=== PATIENT | female | born 1965 | race Two or more races ===

== ENCOUNTER 2024-06-06 11:09 | Emergency (ER) | payer OTHER ==
[~2024-06-06] VITALS: Ht 157.5 cm; Wt 86.9 kg
[2024-06-06 11:16] VITALS: BP 98/64; PULSE 98; RESP 18; O2SAT 98
[2024-06-06 11:57] LABS: Urine Bacteria None Seen /hpf (None Seen)
[2024-06-06 12:34] LABS: Urine Blood Negative /uL (Negative); Urine Clarity Clear (Clear); Urine Color Yellow (Yellow); Urine Protein, UAD Negative (Negative); Urine Specific Gravity 1.044 (1.001-1.035); Urine Urobilinogen Normal (Negative); Urine WBC <1 /hpf (0 - 5)
== END 2024-06-06 13:54 | disposition home or self-care (01) ==
LOC: ER 11:09
DX: Z76.0 Encounter for issue of repeat prescription (principal); Z88.2 Allergy status to sulfonamides; Z98.890 Other specified postprocedural states
CPT/HCPCS: 81001

== ENCOUNTER 2024-10-03 15:15 | Emergency (ER) | payer OTHER ==
[~2024-10-03] VITALS: Ht 157.5 cm; Wt 94.2 kg
[2024-10-03 15:47] LABS: Basophils # (auto) 0 10 ^3/uL (0-0.2); Basophils % (auto) 0.2 % (0.0-2.0); Eosinophils # (auto) 0 10 ^3/uL (0-0.8); Eosinophils % (auto) 0.5 % (0.0-7.0); Hematocrit 40.9 % (36.0-46.0); Hemoglobin 13.2 g/dL (12.2-16.2); Lymphocytes # (auto) 0.6 10 ^3/uL (0.4-5.4); Lymphocytes % (auto) 12.6 % (10.0-50.0); Mean Corpuscular Hemoglobin 30.1 pg (28.0-32.0); Mean Corpuscular Hgb Conc. 32.4 g/dL (32.0-36.0); Monocytes # (auto) 0.6 10 ^3/uL (0-1.3); Monocytes % (auto) 11.4 % (0.0-12.0); Neutrophils # (auto) 3.6 10 ^3/uL (1.6-8.6); Neutrophils % (auto) 75.3 % (37.0-80.0); Platelet Count (auto) 286 10^3/uL (140-450); Red Cell Distribution Width 16.1 % (11.8-14.3); White Blood Cell 4.8 10^3/uL (4.4-10.8)
[2024-10-03 15:50] LABS: Chloride 102 mmol/L (98-107)
[2024-10-03 15:51] LABS: Anion Gap 6 (5-15); Carbon Dioxide 25 mmol/L (20-31)
[2024-10-03 15:52] LABS: Calcium 8.6 mg/dL (8.7-10.4); Sodium 133 mmol/L (136-145)
[2024-10-03 15:56] LABS: Blood Urea Nitrogen 20 mg/dL (9-23)
[2024-10-03 15:57] LABS: Glucose 303 mg/dL (74-106)
[2024-10-03 16:04] LABS: Urine Bacteria None Seen /hpf (None Seen)
[2024-10-03 16:13] LABS: Urine Blood Negative /uL (Negative); Urine Clarity Clear (Clear); Urine Color Yellow (Yellow); Urine Protein, UAD Negative (Negative); Urine Urobilinogen Normal (Negative); Urine WBC 1 /hpf (0 - 5); Urine pH 5.5 (5.0-9.0)
--- NOTE | 2024-10-03 16:20 | ED.PDOC ---
GI ASSESSMENT HPI Comments 58-year-old female who comes in with chief complaint of lower abdominal pain. The patient states that she has also been having some nausea as well as vomiting and diarrhea. Patient states that the symptoms have been going on for the past days. She states that the pain radiates towards her back and she rates it as a 10/10. The patient has had multiple surgeries for hernias in the past as well as adhesions. Chief Complaint: Abdominal Pain Time Seen by MD: 15:21 Primary Care Provider: RIANA Harley Notes: Nurses Notes, Medications, Allergies (Allergies to sulfa) Allergies: Uncoded Allergies: SULFA (Allergy, Unknown, 06/06/24) Information Source: Patient Mode of Arrival: Ambulatory Timing: Days Duration: Since onset Prehospital treatment: None Quality: Cramping, Sharp Vomitus: Bilious Stool: Normal Severity: Moderate Recent: None Recent Hx of: Other (Previous multiple surgeries for hernias) Pain Location: RLQ, LLQ Modifying Factors: Nothing Associated sign and symptoms: Nausea, Vomiting, Diarrhea, Abdominal Pain Past Medical History PAST MEDICAL HISTORY: DM, HTN, Thyroid Surgical History: Appendectomy, Cholecystectomy, Hernia Repair, Denies all surgeries Surgical History (Other): Gastric bypass surgery BOILER FITTER History: No Pertinent BOILER FITTER History Family History Family History: Family hx of DM, Family hx of Cancer, Family hx of heart juany Social History Smoker: Non-Smoker Alcohol: Occasionally Drugs: Denies Drug Use Lives In: Home Constitutional: denies: chills, diaphoresis, fatigue, fever, malaise, sweats, weakness, others EENTM: denies: blurred vision, double vision, ear bleeding, ear discharge, ear drainage, ear pain, ear ringing, eye pain, eye redness, hearing loss, mouth pain, mouth swelling, nasal discharge, nose bleeding, nose congestion, nose pain, photophobia, tearing, throat pain, throat swelling, voice changes, others Respiratory: denies: cough, hemoptysis, orthopnea, SOB at rest, shortness of breath, SOB with excertion, stridor, wheezing, others Cardiovascular: denies: chest pain, dizzy spells, diaphoresis, Dyspnea on exertion, edema, irregular heart beat, left arm pain, lightheadedness, palpitations, PND, syncope, others Gastrointestinal: reports: abdominal pain, diarrhea, nausea, vomiting; denies: abdomen distended, blood streaked bowels, constipated, dysphagia, difficulty swallowing, hematemesis, melena, poor appetite, poor fluid intake, rectal bleeding, rectal pain, others Genitourinary: denies: abnormal vagina bleeding, burning, dyspareunia, dysuria, flank pain, frequency, hematuria, incontinence, pain, , vagina discharge, urgency, others Neurological: denies: dizziness, fainting, headache, left sided numbness, left sided weakness, numbness, paresthesia, pre-existing deficit, right sided numbness, right sided weakness, seizure, speech problems, tingling, tremors, weakness, others Musculoskeletal: denies: back pain, gout, joint pain, joint swelling, muscle pain, muscle stiffness, neck pain, others Integumetry: denies: bruises, change in color, change in hair/nails, dryness, laceration, lesions, lumps, rash, wounds, others Allergic/Immunocompromised: denies: Difficulty Healing, Frequent Infections, Hives, Itching, others Hematologic/Lymphatic: denies: anemia, blood clots, easy bleeding, easy bruising, swollen glands, others Endocrine: denies: excessive hunger, excessive sweating, excessive thirst, excessive urination, flushing, intolerance to cold, intolerance to heat, unexplained weight gain, unexplained weight loss, others Psychiatric: denies: anxiety, bipolar disorder, depression, hopeless, panic disorder, schizophrenia, sleepless, suicidal, others Physical Exam General Appearance: Moderate Distress HEENT: Normal ENT Inspection, Pharynx Normal, TMs Normal Neck: Full Range of Motion, Non-Tender, Normal, Normal Inspection Respiratory: Chest Non-Tender, Lungs Clear, No Accessory Muscle Use, No Respiratory Distress, Normal Breath Sounds Cardiovascular: No Edema, No JVD, No Murmur, No Gallop, Normal Peripheral Pulses, Regular Rate/Rhythm Breast Exam: Deferred Gastrointestinal: LLQ, No Organomegaly, No Pulsatile Mass, Normal Bowel Sounds, RLQ, Soft, Tenderness Genitalia: Deferred Pelvic: Deferred Rectal: Deferred Extremities: No calf tenderness, Normal capillary refill, Normal inspection, Normal range of motion, Non-tender, No pedal edema Musculoskeletal : Apperance: Normal Neurologic: Alert, 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 Was a procedure done?: No GI differential Dx Differential Diagnosis: Diverticular disease, Gastritis/PUD, Gastroenteritis, GI hemorrhage, Pancreatitis, UTI, Electrolyte Imbalance, Food Poisoning X-Ray, Labs, Meds, VS Vital Signs Date Time Temp Pulse Resp B/P (MAP) Pulse Ox O2 Delivery O2 Flow Rate FiO2 10/03/24 21:35 105 20 136/61 10/03/24 21:25 99.1 105 20 136/61 (86) 99 99.1 10/03/24 21:25 105 20 99 Room Air 10/03/24 18:04 95 16 140/58 (85) 96 10/03/24 18:02 95 16 140/58 10/03/24 17:19 144 20 126/64 10/03/24 17:14 104 20 99 Room Air 10/03/24 17:14 98.5 104 20 126/64 (84) 99 98.5 10/03/24 15:35 96 10/03/24 15:24 98.4 113 24 124/87 (99) 97 Lab Test 10/03/24 16:38 10/03/24 15:33 10/03/24 15:30 10/03/24 15:25 Range/Units Troponin I High Sensitivity < 3 L < 3 L </=34 ng/L White Blood Count 4.8 4.4-10.8 10^3/uL Red Blood Count 4.40 4.0-5.20 10^6/uL Hemoglobin 13.2 12.2-16.2 g/dL Hematocrit 40.9 36.0-46.0 % Mean Corpuscular Volume 93.0 80.0-100.0 fL Mean Corpuscular Hemoglobin 30.1 28.0-32.0 pg Mean Corpuscular Hemoglobin Concent 32.4 32.0-36.0 g/dL Red Cell Distribution Width 16.1 H 11.8-14.3 % Platelet Count 286 140-450 10^3/uL Mean Platelet Volume 8.1 6.9-10.8 fL Neutrophils (%) (Auto) 75.3 37.0-80.0 % Lymphocytes (%) (Auto) 12.6 10.0-50.0 % Monocytes (%) (Auto) 11.4 0.0-12.0 % Eosinophils (%) (Auto) 0.5 0.0-7.0 % Basophils (%) (Auto) 0.2 0.0-2.0 % Neutrophils # (Auto) 3.6 1.6-8.6 10 ^3/uL Lymphocytes # (Auto) 0.6 0.4-5.4 10 ^3/uL Monocytes # (Auto) 0.6 0-1.3 10 ^3/uL Eosinophils # (Auto) 0 0-0.8 10 ^3/uL Basophils # (Auto) 0 0-0.2 10 ^3/uL Nucleated Red Blood Cells 0.0 % Sodium Level 133 L 136-145 mmol/L Potassium Level 4.0 3.5-5.1 mmol/L Chloride Level 102 98-107 mmol/L Carbon Dioxide Level 25 20-31 mmol/L Anion Gap 6 5-15 Blood Urea Nitrogen 20 9-23 mg/dL Creatinine 0.80 0.550-1.02 mg/dL Glomerular Filtration Rate Calc 86 >90 mL/min BUN/Creatinine Ratio 25.0 H 10.0-20.0 Serum Glucose 303 H 74-106 mg/dL Calcium Level 8.6 L 8.7-10.4 mg/dL Urine Color Yellow Yellow Urine Clarity Clear Clear Urine pH 5.5 5.0-9.0 Urine Specific [place] 1.020 1.001-1.035 Urine Protein Negative Negative Urine Ketones Trace Negative Urine Blood Negative Negative /uL Urine Nitrite Negative Negative Urine Bilirubin Negative Negative Urine Urobilinogen Normal Negative mg/dL Urine Leukocyte Esterase Negative Negative /uL Urine RBC 2 0 - 4 /hpf Urine WBC 1 0 - 5 /hpf Urine Squamous Epithelial Cells Few <5 /hpf Urine Bacteria None seen None Seen /hpf Urine Glucose 4+ H Normal mg/dL POC Glucose 261 H 70-106 mg/dl Current Medications Medications (Trade) Dose Ordered Sig/Sveta Route Start Time Stop Time Status Last Admin Ondansetron HCl (Zofran) 4 mg ONCE ONCE IV 10/03/24 16:00 10/03/24 16:01 NM 10/03/24 17:19 Morphine Sulfate 4 mg ONCE ONCE IV 10/03/24 16:00 10/03/24 16:01 DC 10/03/24 17:19 Sodium Chloride 500 ml @ 500 mls/hr Q1H ONCE IVB 10/03/24 16:00 10/03/24 16:59 DC 10/03/24 17:16 Pantoprazole Sodium (Protonix) 40 mg ONCE ONCE IV 10/03/24 16:00 10/03/24 16:01 DC 10/03/24 17:18 Hydromorphone HCl (Dilaudid Injection) 0.5 mg ONCE ONCE IV 10/03/24 18:15 10/03/24 18:16 DC 10/03/24 21:35 Ondansetron HCl (Zofran) 4 mg ONCE ONCE IV 10/03/24 18:15 10/03/24 18:16 DC 10/03/24 21:34 CT scan of the abdomen and pelvis: IMPRESSION: 1. Large ventral hernias noted above the umbilicus and below the umbilicus. 2. Contains bowel and mesenteric fat. 3. No CT findings to suggest bowel obstruction at this time. This is The patient was given morphine 4 mg IV push for the pain The patient was given Zofran 4 mg IV push The patient was given a bolus of normal saline The patient was given Protonix 40 mg IV push The urine test is negative The patient's CBC can chemistry panel is within normal limits The troponin level x2 is also negative The patient was still having persistent pain so the patient was given Dilaudid The patient was also not given Zofran We spoke with the choice physician and he will come and evaluate the patient and do the final disposition Images Reviewed?: Images reviewed and evaluated by me Time of 1ST Reevaluation: 21:28 Reevaluation 1ST: Unchanged Patient Education/Counseling: Diagnosis, Treatment, Prognosis Family Education/Counseling: No Family Present Departure 1 Departure Time of Disposition: 21:28 Impression: Primary Impression: Intractable abdominal pain Additional Impression: Ventral hernia Qualified Codes: K43.9 - Ventral hernia without obstruction or gangrene Disposition: 09 ADMITTED INPATIENT Admit to: Med Surg Condition: Fair Critical Care Note Critical Care Time?: No Stability Stability form required: Yes Unstable for transfer: ED Physician Assesment (Clinical assesment) Heart Score Heart Score: Heart Score Response (Comments) Value History Slightly Suspicious 0 EKG Normal 0 Age N/A 0 Risk Factors N/A 0 Troponin N/A 0 Total 0 DARLEEN FLORES MD Oct 03, 2024 16:20
--- NOTE | 2024-10-03 16:52 | DVH ---
Exam: CT CT AB PEL WO CON-NO ORAL OR IV History: pain Comparison Study: None available at time of dictation. TECHNIQUE: Multidetector CT of the abdomen was performed from lung bases to pubic symphysis. Imaging was performed without IV contrast. Axial, coronal and sagittal multiplanar reformats were obtained fr om the axial data set by the technologist. Radiation Dose Information: CT Dose: CTDI volume is 22.77 mGy. Dose-length product is 1366.93 mGy*cm FINDINGS: Evaluation of solid organs is limited due to lack of intravenous contrast use. Findings: Lung Bases: No acute or significant lung base finding. Normal heart size. No pleural or pericardial effusion. Liver: The liver is normal in size. No focal lesions. Gallbladder and Biliary Tree: Unremarkable Spleen: Unremarkable Pancreas: The pancreas is grossly normal in appearance. Adrenal Glands: Unremarkable Kidneys: Kidneys are grossly normal without calculi or hydronephrosis. Bladder: Grossly unremarkable for degree of distention. Bowel: The stomach is grossly normal in appearance. Small bowel and colon are normal in caliber and d istribution. The appendix is not visualized; however, no secondary findings of acute appendicitis id entified. Ascites: Absent Lymphadenopathy: No mesenteric, retroperitoneal or periportal lymphadenopathy. Abdominal Wall and Mesentery: Ventral hernia containing bowel and mesenteric fat. Noted above the lev el of the umbilicus measuring 7-8 cm in length with a 5 cm defect in the anterior abdominal wall. Me asuring 9 cm in transverse dimension and 3.5 cm in thickness. Large left ventral hernia noted at the umbilicus and extending caudally to the left inguinal canal; containing bowel and mesenteric fat. Measuring 15-16 cm L x 15-16 cm in transverse dimension and 7-7 .5 cm in AP dimension and extending into the left inguinal area. Vasculature: The visualized abdominal aorta is normal in size and caliber. Evaluation of abdominal a nd pelvic vessels is limited due to lack of intravenous contrast. Pelvic Organs: Unremarkable Musculoskeletal: No aggressive focal bony lesions, acute fractures or dislocation. Soft tissues: Unremarkable IMPRESSION: 1. Large ventral hernias noted above the umbilicus and below the umbilicus. 2. Contains bowel and mesenteric fat. 3. No CT findings to suggest bowel obstruction at this time. Radiation optimization: All CT scans at this facility use at least one of these dose optimization te chniques: automated exposure control mA and/or kV adjustment per patient size (includes targeted exa ms where dose is matched to clinical indication) or iterative reconstruction.
[2024-10-03] MEDS: SODIUM CHLORIDE 0.9% 500 ML IVB ONE (17:16)
[2024-10-03] MEDS: PANTOPRAZOLE 40 MG/10 ML VIAL INJ IV ONE (17:18)
[2024-10-03] MEDS: MORPHINE SULFATE 4 MG/ML SYR/VIAL IV ONE (17:19)
[2024-10-03] MEDS: ONDANSETRON HCL 4 MG/2 ML VIAL IV ONE ×2 (17:19→21:34)
[2024-10-03 21:25] VITALS: TEMP 99.1; O2SAT 99
[2024-10-03] MEDS: HYDROmorphone HCL 2 MG/ML VL/or syr IV ONE (21:35)
[2024-10-03 22:27] VITALS: BP 106/53; PULSE 103; RESP 18
--- NOTE | 2024-10-03 23:12 | DVHINCON2 ---
Date of service: Oct 03, [address] Mistry Reason for Consultation Medical Management History of Present Illness 58 year old female with past medical history of Multiple failed her new repairs presents with complaints of abdominal pain, Nausea, vomiting, diarrhea. Patient states Multiple family members have been sick around the house diagnosed with Gastroenteritis. Patient states she has been told by Surgical team at [facility] that she is not a candidate for any additional hernia repairs. Due to the Multiple abdominal surgeries she has already had. Patient states abdominal pain Is still Seven out of 10. However endorses that she does not want to be admitted to the hospital. Past Surgical History Hernia repairs Allergies: Uncoded Allergies: SULFA (Allergy, Unknown, 06/06/24) Review of Systems 10 systems reviewed and negative except as per HPI Vital Signs Vital Signs Date Time Temp Pulse Resp B/P (MAP) Pulse Ox O2 Delivery O2 Flow Rate FiO2 10/03/24 22:27 103 18 106/53 10/03/24 21:25 99.1 99 99.1 10/03/24 21:25 Room Air Physical Exam GENERAL: Patient appearing stated age, in no acute distress. HEENT: Pupils equal and reactive to light and accommodation. Extraocular muscles intact. Mucous membranes moist. Conjunctivae pink. Anicteric sclerae. LUNGS: Bilateral air entry. No wheezes, rhonchi or rales. HEART: Regular rate and rhythm. Normal S1 and S2. ABDOMEN: BS normoactive, soft, and nondistended. No CVA tenderness. Abnormal contour. Tender EXTREMITIES: No clubbing, cyanosis, edema. No calf tenderness. Pedal pulses 2+. NEUROLOGICAL: The patient is alert and oriented times 3. CN II-XII intact. No focal deficits on gross sensory or motor examination. Labs/Diagnostic Data Labs Test 10/03/24 22:06 10/03/24 16:38 10/03/24 15:33 10/03/24 15:30 Range/Units Lactic Acid Level 0.9 0.4-2.0 mmol/L Troponin I High Sensitivity < 3 L </=34 ng/L White Blood Count 4.8 4.4-10.8 10^3/uL Red Blood Count 4.40 4.0-5.20 10^6/uL Hemoglobin 13.2 12.2-16.2 g/dL Hematocrit 40.9 36.0-46.0 % Mean Corpuscular Volume 93.0 80.0-100.0 fL Mean Corpuscular Hemoglobin 30.1 28.0-32.0 pg Mean Corpuscular Hemoglobin Concent 32.4 32.0-36.0 g/dL Red Cell Distribution Width 16.1 H 11.8-14.3 % Platelet Count 286 140-450 10^3/uL Mean Platelet Volume 8.1 6.9-10.8 fL Neutrophils (%) (Auto) 75.3 37.0-80.0 % Lymphocytes (%) (Auto) 12.6 10.0-50.0 % Monocytes (%) (Auto) 11.4 0.0-12.0 % Eosinophils (%) (Auto) 0.5 0.0-7.0 % Basophils (%) (Auto) 0.2 0.0-2.0 % Neutrophils # (Auto) 3.6 1.6-8.6 10 ^3/uL Lymphocytes # (Auto) 0.6 0.4-5.4 10 ^3/uL Monocytes # (Auto) 0.6 0-1.3 10 ^3/uL Eosinophils # (Auto) 0 0-0.8 10 ^3/uL Basophils # (Auto) 0 0-0.2 10 ^3/uL Nucleated Red Blood Cells 0.0 % Sodium Level 133 L 136-145 mmol/L Potassium Level 4.0 3.5-5.1 mmol/L Chloride Level 102 98-107 mmol/L Carbon Dioxide Level 25 20-31 mmol/L Anion Gap 6 5-15 Blood Urea Nitrogen 20 9-23 mg/dL Creatinine 0.80 0.550-1.02 mg/dL Glomerular Filtration Rate Calc 86 >90 mL/min BUN/Creatinine Ratio 25.0 H 10.0-20.0 Serum Glucose 303 H 74-106 mg/dL Calcium Level 8.6 L 8.7-10.4 mg/dL Urine Color Yellow Yellow Urine Clarity Clear Clear Urine pH 5.5 5.0-9.0 Urine Specific [place] 1.020 1.001-1.035 Urine Protein Negative Negative Urine Ketones Trace Negative Urine Blood Negative Negative /uL Urine Nitrite Negative Negative Urine Bilirubin Negative Negative Urine Urobilinogen Normal Negative mg/dL Urine Leukocyte Esterase Negative Negative /uL Urine RBC 2 0 - 4 /hpf Urine WBC 1 0 - 5 /hpf Urine Squamous Epithelial Cells Few <5 /hpf Urine Bacteria None seen None Seen /hpf Urine Glucose 4+ H Normal mg/dL Test 10/03/24 15:25 Range/Units POC Glucose 261 H 70-106 mg/dl Assessment -Abdominal pain -Ventral wall hernias Plan/Recommendation After discussing lab values and CT findings with the patient. Patient states she does not want to be admitted to the hospital. Will consult HMO case management to set up home health Home safety evaluation and follow up visit with PCP. Plan discussed with: Patient SYEDA WHITTEN KETTLE WORKER Oct 03, 2024 23:12
--- NOTE | 2024-10-05 14:49 | ECG ---
[facility] Test Date: 2024-10-03 Test Time: 15:35:38 Pat Name: SAMANTHA YANES Department: ER Room: Gender: F Medical Anthropology Director: DONOVAN : 1965 Requested By: DARLEEN FLORES Order Number: [id number] Reading MD: Measurements Intervals [place] Rate: 96 P: -10 OR: 128 QRS: -35 QRSD: 94 T: 4 QT: 360 QTc: 455 Interpretive Statements Sinus rhythm Left axis deviation Low voltage, precordial leads Abnormal R-wave progression, early transition Borderline T abnormalities, anterior leads Please click the below link to view image of tracing.
== END 2024-10-03 23:21 | disposition home or self-care (01) ==
LOC: ER 15:15
DX: K43.9 Ventral hernia without obstruction or gangrene (principal); R10.31 Right lower quadrant pain; E11.9 Type 2 diabetes mellitus without complications; I10 Essential (primary) hypertension; E03.9 Hypothyroidism, unspecified; Z88.2 Allergy status to sulfonamides; Z90.49 Acquired absence of other specified parts of digestive tract; Z90.89 Acquired absence of other organs; Z98.890 Other specified postprocedural states
CPT/HCPCS: 36415; 74176; 80048; 81001; 82962; 83605; 84484; 85025; 96361; 96374; 96375; 96376; 99285; J1171; J2270; J2405; J2470; J7030; 93005